=== PATIENT | female | born 2000 | race Caucasian/White ===

== ENCOUNTER 2023-04-18 12:06 | Emergency (ER) | payer MEDICAID ==
[2023-04-18] MEDS ORDERED: Sodium Chloride 0.9% 10 ML Syringe FLUSH PRN (14:06)
[2023-04-18] MEDS ORDERED: Sodium Chloride 0.9% 2.5 ML Syringe FLUSH PRN (14:06)
[2023-04-18] MEDS ORDERED: Sodium Chloride 0.9% 1,000 ML IV STA (14:06)
[2023-04-18 14:31] LABS: APPEARANCE,URINE CLEAR; BILIRUBIN,URINE NEGATIVE (NEGATIVE); COLOR,URINE YELLOW; GLUCOSE,URINE NEGATIVE (NEGATIVE); KETONES,URINE NEGATIVE (NEGATIVE); LEUKOCYTE ESTERASE,URINE NEGATIVE (NEGATIVE); NITRITE,URINE NEGATIVE (NEGATIVE); OCCULT BLOOD,URINE NEGATIVE (NEGATIVE); PH,URINE 6.5 (5.0-8.0); PROTEIN,URINE NEGATIVE (NEGATIVE); UROBILINOGEN,URINE 0.2 EU/dL (<2.0)
[2023-04-18 14:39] LABS: BASOPHILS ABSOLUTE AUTO 0.02 K/uL (0.00-0.20); BASOPHILS PERCENT AUTO 0.2 % (0.0-1.0); EOSINOPHILS ABSOLUTE AUTO 0.03 K/uL (0.00-0.45); EOSINOPHILS PERCENT AUTO 0.3 % (0.0-6.0); HEMATOCRIT 32.3 % (37.0-47.0); HEMOGLOBIN 11.3 g/dL (12.0-16.0); IMMATURE GRAN ABSOLUTE AUTO 0.04 K/uL (0.00-0.05); IMMATURE GRAN PERCENT AUTO 0.3 % (0.0-0.4); LYMPHOCYTES ABSOLUTE AUTO 0.82 K/uL (1.00-4.80); LYMPHOCYTES PERCENT AUTO 7.1 % (24.0-44.0); MEAN CORPUSCULAR VOLUME 85.7 fL (83.0-99.0); MONOCYTES ABSOLUTE AUTO 0.65 K/uL (0.00-0.80); MONOCYTES PERCENT AUTO 5.6 % (0.0-8.0); NEUTROPHILS PERCENT AUTO 86.5 % (41.0-71.0); PLATELET COUNT,PLT 231 K/uL (150-400); RED BLOOD CELL COUNT 3.77 M/uL (4.10-5.30); WHITE BLOOD CELL COUNT,WBC 11.56 K/uL (3.9-11.3)
[2023-04-18] MEDS ORDERED: Acetaminophen 500 MG Tab PO STA (15:08)
[2023-04-18 15:36] LABS: A/G RATIO 0.6 (0.9-1.6); ALBUMIN 2.7 g/dL (3.4-5.0); BILIRUBIN TOTAL 0.3 mg/dL (0.2-1.0); CALCIUM 8.8 mg/dL (8.5-10.1); CARBON DIOXIDE,CO2 24.2 mmol/L (21.0-32.0); CREATININE 0.5 mg/dL (0.6-1.0); EST CRCL DRUG DOSING (CG) 163.82 mL/min; POTASSIUM,K 3.3 mmol/L (3.5-5.1)
== END 2023-04-18 17:05 | disposition home or self-care (01) ==
LOC: MW.ED 12:06
DX: O99.612 Diseases of the digestive system complicating pregnancy, second trimester (principal); K80.20 Calculus of gallbladder without cholecystitis without obstruction; Z3A.25 25 weeks gestation of pregnancy
CPT/HCPCS: 36415; 76705; 80053; 81003; 83690; 85025; 93005; 96360; 99284; A9270; J3490; J7030; 93010; 99283

== ENCOUNTER 2023-07-22 00:15 | Inpatient (IN) | payer MEDICAID ==
[2023-07-22] MEDS ORDERED: Methylergonovine 0.2 MG/1 ML Amp IM PRN (09:03)
[2023-07-22] MEDS ORDERED: Terbutaline 1 MG/ML SDV SUBCUT PRN (09:03)
[2023-07-22] MEDS ORDERED: Carboprost Tromethamine 250 MCG/1 mL Vial IM PRN (09:03)
[2023-07-22] MEDS ORDERED: Sodium Chloride 0.9% 2.5 ML Syringe FLUSH PRN (09:03)
[2023-07-22] MEDS ORDERED: Sodium Chloride 0.9% 10 ML Syringe FLUSH PRN (09:03)
[2023-07-22] MEDS ORDERED: Sodium Chloride 0.9% 20 ML SDV IV PRN (09:03)
[2023-07-22] MEDS ORDERED: Water For Irrigation,Sterile 1,000 ML Container IRR PRN (09:03)
[2023-07-22] MEDS ORDERED: Tranexamic Acid IN NACL,ISO-OS 1,000 MG in Premix Bag 1 BAG IV PRN (09:03)
[2023-07-22] MEDS ORDERED: Misoprostol 200 MCG Tab PO PRN (09:03)
[2023-07-22] MEDS: Lactated Ringers 1,000 ML IV ONE (09:15)
[2023-07-22 09:20] LABS: HEMATOCRIT 34.3 % (37.0-47.0); HEMOGLOBIN 11.4 g/dL (12.0-16.0); MEAN CORPUSCULAR HGB CONC 33.2 g/dL (32.0-36.0); MEAN CORPUSCULAR VOLUME 81.1 fL (83.0-99.0); MEAN PLATELET VOLUME 9.7 fL (9.4-12.3); PLATELET COUNT,PLT 310 K/uL (150-400); RED BLOOD CELL COUNT 4.23 M/uL (4.10-5.30); WHITE BLOOD CELL COUNT,WBC 9.96 K/uL (3.9-11.3)
[2023-07-22 09:28] LABS: AMPHETAMINES SCREEN, URINE NEGATIVE (CUTOFF=500); BARBITURATE SCREEN,URINE NEGATIVE (CUTOFF=200); BENZODIAZEPINES SCREEN,URINE NEGATIVE (CUTOFF=150); BUPRENORPHINE SCREEN,URINE NEGATIVE (CUTOFF=10); METHADONE SCREEN, URINE NEGATIVE (CUTOFF=200); METHAMPHETAMINES SCREEN, URINE NEGATIVE (CUTOFF=500); OXYCODONE SCREEN,URINE NEGATIVE (CUT0FF=100); PCP SCREEN,URINE NEGATIVE (CUTOFF=25); THC SCREEN,URINE 20 NG/ML NEGATIVE (CUTOFF=50)
[2023-07-22] MEDS: Misoprostol 25 MCG (1/4 of 100 MCG) Tab VAG PRN ×2 (09:45→13:27)
[2023-07-23] MEDS: Nalbuphine 10 MG/0.5 ML Syringe IVPUSH PRN (02:20)
[2023-07-23] MEDS: Oxytocin/0.9 % Sodium Chloride 30 UNIT/500 ML BAG IV SCH (07:04)
[2023-07-23] MEDS ORDERED: Phenylephrine HCl 0.5 MG/5 ML AMP IVPUSH PRN (08:02)
[2023-07-23] MEDS ORDERED: ePHEDrine 50 MG/ML SDV IVPUSH PRN ×2 (08:02)
[2023-07-23] MEDS ORDERED: Bupivacaine 0.5% 10 ML SDV ONE (08:18)
[2023-07-23] MEDS: Ropivacaine HCl/PF 400 MG in Premix Bag 1 BAG EPIDUR SCH (08:30)
[2023-07-23] MEDS: Lactated Ringers 1,000 ML IV SCH (08:31)
[2023-07-23] MEDS: Ondansetron 4 MG/2 ML SDV IVPUSH PRN (12:29)
[2023-07-24] MEDS ORDERED: Misoprostol 200 MCG Tab ONE (00:38)
[2023-07-24] MEDS: Misoprostol 100 MCG Tab RECTAL ONE (00:40)
[2023-07-24] MEDS: Oxytocin/0.9 % Sodium Chloride 30 UNIT/500 ML BAG IV SCH (00:40)
[2023-07-24] MEDS: Lidocaine 1% 50 ML MDV INJECT PRN (00:40)
[2023-07-24] MEDS ORDERED: Docusate Sodium 100 MG Cap PO PRN (01:16)
[2023-07-24] MEDS ORDERED: Lanolin 100% Cream 7 GM Tube TOP PRN (01:16)
[2023-07-24] MEDS ORDERED: oxyCODONE 5 MG Tab PO PRN (01:16)
[2023-07-24] MEDS ORDERED: Ondansetron 4 MG Tab.DIS PO PRN (01:19)
[2023-07-24] MEDS: Acetaminophen 500 MG Tab PO PRN (01:36)
[2023-07-24] MEDS: Witch Hazel Medicated Pads 40/Jar TOP PRN (01:38)
[2023-07-24] MEDS: Benzocaine/Menthol 20%-0.5% Spray 78 GM Cannister TOP PRN (01:39)
[2023-07-24] MEDS: Ibuprofen 800 MG Tab PO PRN (08:24)
[2023-07-24] MEDS: Albuterol 8 GM Inhaler INH SCH (10:06)
[2023-07-25 06:17] LABS: HEMATOCRIT 25.7 % (37.0-47.0); HEMOGLOBIN 8.3 g/dL (12.0-16.0)
== END 2023-07-26 | disposition home or self-care (01) | DRG 807 ==
LOC: MW.OB 00:15 → OBSVTOIN 07-24 00:15 → MW.OB 07-24 04:26
PROVIDERS: ADMIT Obstetrics & Gynecology; ATTEND Obstetrics & Gynecology
PROC: 10E0XZZ Delivery of Products of Conception, External Approach (ICD-10-PCS; principal; 2023-07-24)
PROC: 10D17Z9 Manual Extraction of Products of Conception, Retained, Via Natural or Artificial Opening (ICD-10-PCS; 2023-07-24)
PROC: 0KQM0ZZ Repair Perineum Muscle, Open Approach (ICD-10-PCS; 2023-07-24)
PROC: 3E033VJ Introduction of Other Hormone into Peripheral Vein, Percutaneous Approach (ICD-10-PCS; 2023-07-24)
PROC: 3E0R3BZ Introduction of Anesthetic Agent into Spinal Canal, Percutaneous Approach (ICD-10-PCS; 2023-07-24)
PROC: 00HU33Z Insertion of Infusion Device into Spinal Canal, Percutaneous Approach (ICD-10-PCS; 2023-07-24)
PROC: 3E0P7VZ Introduction of Hormone into Female Reproductive, Via Natural or Artificial Opening (ICD-10-PCS; 2023-07-24)
DX: O63.1 Prolonged second stage (of labor) (principal); Z37.0 Single live birth; O70.1 Second degree perineal laceration during delivery; O69.81X0 Labor and delivery complicated by cord around neck, without compression, not applicable or unspecified; O62.2 Other uterine inertia; Z3A.39 39 weeks gestation of pregnancy
CPT/HCPCS: 36415; 51702; 59025; 59409; 80305-QW; 85014; 85018; 85027; 86592; 86850; 86900; 86901; A9270-GY; J0665; J2001; J2300; J2405; J2590; J2795; J7120